=== PATIENT | male | born 1960 | race Caucasian/White ===

== ENCOUNTER 2016-09-29 21:30 | Emergency (ER) | payer OTHER ==
[~2016-09-29] VITALS: Ht 170.2 cm; Wt 136.1 kg
[~2016-09-29 21:30] MED LIST: ALBU25PO2 MC; ALBU8.5H6 IH; ASPI-482 PO; FLUT1DIS IH; FLUT1DIS3 IH; GABA-585 PO; HYDR-971 PO; LISI-334 PO; METO-269 PO; METO25TA9 PO; NYST15PO9 TP; RANI150C PO; SIMV10TA3 PO; SIMV20TA3 PO
[2016-09-29 21:45] VITALS: BP 167/90
[2016-09-29] MEDS ORDERED: HYDROcodone/APAP 5/325MG 1 TAB TABLET PO ONE (23:00)
[2016-09-29] MEDS ORDERED: DIPHTH,PERTUSS(ACELL),TET TOX 0.5 ML DISP.SYRIN. VAX IM ONE (23:00)
--- NOTE | 2016-09-29 23:00 | PHYS DOC ---
Past Medical History Past Medical History: Asthma, GERD, High Cholesterol, Hypertension, [place], MRSA, Other Additional Past Medical Histor: chronic back pain,groin wound Past Surgical History: Other Additional Past Surgical Histo: tooth extraction Alcohol Use: None Drug Use: None Adult General Chief Complaint Chief Complaint: FOOT INJURY PAIN HPI HPI Patient is a 55 year old male who presents with mid foot plantar pain to right foot after stepping on a nail. Had shoes on. Maximiliano nail. It came out immediately. Happened shortly prior to arrival. Denies numbness, tingling, weakness, bleeding. Unknown tetanus status. Review of Systems Review of Systems Constitutional: Denies fever or chills [] Eyes: Denies change in visual acuity, redness, or eye pain [] HENT: Denies nasal congestion or sore throat [] Respiratory: Denies cough or shortness of breath [] Cardiovascular: No additional information not addressed in HPI [] GI: Denies abdominal pain, nausea, vomiting, bloody stools or diarrhea [] : Denies dysuria or hematuria [] Musculoskeletal: Denies back pain [] Integument: Denies rash or skin lesions [] Neurologic: Denies headache, focal weakness or sensory changes [] Endocrine: Denies polyuria or polydipsia [] Current Medications Current Medications Current Medications Medications (Trade) Dose Ordered Sig/Keith Start Time Stop Time Status Last Admin Dose Admin Acetaminophen/ Hydrocodone Bitart (Lortab 5/325) 1 tab 1X ONCE 09/29/16 23:00 09/29/16 23:01 DC 09/29/16 22:50 1 TAB Diphtheria/ Tetanus/Acell Pertussis (Boostrix) 0.5 ml ONCE ONCE 09/29/16 23:00 09/29/16 23:01 DC 09/29/16 22:52 0.5 ML Allergies Allergies Allergies Coded Allergies Type Severity Reaction Last Updated Verified No Known Drug Allergies 08/15/14 No Physical Exam Physical Exam Constitutional: Well developed, well nourished, no acute distress, non-toxic appearance. [] HENT: Normocephalic, atraumatic, bilateral external ears normal, oropharynx moist, nose normal. [] Eyes: PERRLA, EOMI. [] Neck: Normal range of motion, supple. [] Cardiovascular:Heart rate regular rhythm [] Lungs & Thorax: Bilateral breath sounds clear to auscultation [] Abdomen: Bowel sounds normal, soft, no tenderness. [] Skin: Warm, dry, no erythema, no rash. [] Back: Normal range of motion. [] Extremities:RLE with small puncture wound to mid plantar foot with no surrounding discoloration; has local tenderness; Can flex/ex toes; Can dorsiflex /plantar flex ankle; No medial or lateral malleolar tenderness; No 5 th metatarsal base tenderness; SILT goodwin/sa/sp/dp/tib distributions; good dp and pt pulses Neurologic: Alert and oriented X 3, normal motor function, normal sensory function, no focal deficits noted. [] Psychologic: Affect normal, judgement normal, mood normal. [] Current Patient Data Vital Signs Vital Signs Date Time Temp Pulse Resp B/P (MAP) Pulse Ox O2 Delivery O2 Flow Rate FiO2 09/29/16 21:45 98.0 73 20 93 Room Air 98.0 Radiology/Procedures Radiology/Procedures Right foot x-rays interpreted by me as no acute fracture or dislocation, no foreign body Course & Med Decision Making Course & Med Decision Making Discussed supportive care. Return precautions given. He understands and agrees with plan. Dragon Disclaimer Dragon Disclaimer This electronic medical record was generated, in whole or in part, using a voice recognition dictation system. Departure Departure Impression: Primary Impression: Pain, foot Disposition: 01 HOME, SELF-CARE Condition: STABLE Referrals: NO PCP (PCP) Patient Instructions: Musculoskeletal Pain Additional Instructions: Your x-ray appears normal. Take Tylenol or ibuprofen as needed for pain. Follow- up with your primary care doctor. Return for any concerns. Problem Qualifiers Primary Impression: Pain, foot Laterality: right Qualified Codes: M79.671 - Pain in right foot Raymundo LARSON MD Sep 29, 2016 23:00
--- NOTE | 2016-09-30 09:14 | RAD ---
LEFT FOOT AP LATERAL Clinical Indication: mid foot pain to ball of foot after stepping on nail Comparison: None. Findings: There is no acute fracture or dislocation. The bony alignment is normal. Mineralization is normal. No bony erosion. Moderate plantar calcaneal enthesophyte. No radiopaque foreign body is identified. There is no soft tissue abnormality. IMPRESSION: 1. No acute fracture. 2. No radiopaque foreign body.
== END 2016-09-29 23:12 | disposition home or self-care (01) ==
LOC: ER 21:30
DX: M79.671 Pain in right foot (principal); E78.00 Pure hypercholesterolemia, unspecified; G89.29 Other chronic pain; I10 Essential (primary) hypertension; J45.909 Unspecified asthma, uncomplicated; K21.9 Gastro-esophageal reflux disease without esophagitis; I25.2 Old myocardial infarction; Z86.14 Personal history of Methicillin resistant Staphylococcus aureus infection; W22.8XXA Striking against or struck by other objects, initial encounter; Y93.89 Activity, other specified; Y99.8 Other external cause status; Y92.89 Other specified places as the place of occurrence of the external cause
CPT/HCPCS: 73620; 90471; 90715; 99284-25

== ENCOUNTER 2017-01-20 11:45 | Emergency (ER) | payer OTHER ==
[~2017-01-20] VITALS: Ht 170.2 cm; Wt 158.8 kg
[~2017-01-20 11:45] MED LIST changes: +METO-239 PO; -METO25TA9 PO
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
[2017-01-20] MEDS ORDERED: IBUPROFEN 600 MG TABLET. PO ONE (13:30)
[2017-01-20 14:02] LABS: BASO # 0.1 x10^3/uL (0.0-0.2); BASO % 1 % (0-3); EOS % 1 % (0-3); HEMATOCRIT 42.8 % (39.0-53.0); HEMOGLOBIN 14.3 g/dL (13.0-17.5); LYMPH # 2.9 x10^3/uL (1.0-4.8); LYMPH % 27 % (24-48); MEAN CORPUSCULAR HEMOGLOBIN 28 pg (25-35); MEAN CORPUSCULAR HGB CONC 33 g/dL (31-37); MEAN CORPUSCULAR VOLUME 84 fL (79-100); MONO % 5 % (0-9); NEUT % 66 % (31-73); PLATELET COUNT 256 x10^3/uL (140-400); RED BLOOD COUNT 5.07 x10^6/uL (4.30-5.70); WHITE BLOOD COUNT 10.8 x10^3/uL (4.0-11.0)
--- NOTE | 2017-01-20 14:29 | EKG ---
[facility] [address] [place] [address] Test Date: 2017-01-20 Test Time: 13:41:02 Pat Name: TRACI HUYNH Department: Room: Gender: M [employer] Architect: : 1960 Requested By: CRISTOFER VILLANUEVA Order Number: [id number] Reading MD: Pamela Nolasco Measurements Intervals [place] Rate: 58 P: 55 VA: 184 QRS: 28 QRSD: 104 T: 36 QT: 450 QTc: 446 Interpretive Statements SINUS RHYTHM NORMAL EKG Electronically Signed On 01-20-2017 19:40:36 CDT by Pamela Nolasco
[2017-01-20 14:42] LABS: CALCIUM 9.1 mg/dL (8.5-10.1); GFR 76.7
[2017-01-20 14:46] LABS: ALBUMIN 3.3 g/dL (3.4-5.0); ALBUMIN/GLOBULIN RATIO 0.9 (1.0-1.7); TOTAL BILIRUBIN 0.4 mg/dL (0.2-1.0); TOTAL PROTEIN 6.9 g/dL (6.4-8.2)
[2017-01-20] MEDS ORDERED: SULF1TAB24 PO (15:01)
[2017-01-20 15:10] VITALS: BP 196/95
== END 2017-01-20 15:21 | disposition home or self-care (01) ==
LOC: ER 11:45
DX: L03.211 Cellulitis of face (principal); I10 Essential (primary) hypertension; E11.9 Type 2 diabetes mellitus without complications; E78.00 Pure hypercholesterolemia, unspecified; G89.29 Other chronic pain; J45.909 Unspecified asthma, uncomplicated; I25.2 Old myocardial infarction; Z86.14 Personal history of Methicillin resistant Staphylococcus aureus infection; K21.9 Gastro-esophageal reflux disease without esophagitis
CPT/HCPCS: 36415; 70486; 80053; 84484; 85025; 93005; 99285-25

== ENCOUNTER 2017-05-04 20:33 | Emergency (ER) | payer OTHER ==
[2017-05-04 21:15] LABS: ADD MAN DIFF? NO
[2017-05-04 21:16] LABS: BASO # 0.1 x10^3/uL (0.0-0.2); BASO % 1 % (0-3); EOS # 0.2 x10^3/uL (0.0-0.7); EOS % 1 % (0-3); HEMATOCRIT 44.2 % (39.0-53.0); HEMOGLOBIN 14.5 g/dL (13.0-17.5); LYMPH # 2.5 x10^3/uL (1.0-4.8); LYMPH % 19 % (24-48); MEAN CORPUSCULAR HEMOGLOBIN 28 pg (25-35); MEAN CORPUSCULAR HGB CONC 33 g/dL (31-37); MEAN CORPUSCULAR VOLUME 85 fL (79-100); MONO # 1.1 x10^3/uL (0.0-1.1); MONO % 8 % (0-9); NEUT # 9.5 x10^3uL (1.8-7.7); NEUT % 71 % (31-73); PLATELET COUNT 248 x10^3/uL (140-400); RED CELL DISTRIBUTION WIDTH 13.8 % (11.5-14.5); WHITE BLOOD COUNT 13.4 x10^3/uL (4.0-11.0)
[2017-05-04 21:34] LABS: ANION GAP 7 (6-14); BLOOD UREA NITROGEN 11 mg/dL (8-26); BUN/CREATININE RATIO 11 (6-20); CARBON DIOXIDE 29 mmol/L (21-32); CHLORIDE 100 mmol/L (98-107); GFR 76.7; GLUCOSE 99 mg/dL (70-99); POTASSIUM 3.6 mmol/L (3.5-5.1); SODIUM 136 mmol/L (136-145)
[2017-05-04 21:40] LABS: ALBUMIN 3.6 g/dL (3.4-5.0); ALBUMIN/GLOBULIN RATIO 0.9 (1.0-1.7); ALK PHOS 101 U/L (46-116); ALT (SGPT) 26 U/L (16-63); AST (SGOT) 17 U/L (15-37); TOTAL BILIRUBIN 0.5 mg/dL (0.2-1.0); TOTAL PROTEIN 7.7 g/dL (6.4-8.2)
[2017-05-04 21:43] LABS: TROPONINI < 0.017 ng/mL (0.000-0.055)
[2017-05-04 21:51] LABS: D-DIMER 0.43 ug/mlFEU (0.00-0.50)
[2017-05-04 22:01] LABS: INFLUENZA A PATIENT NEGATIVE (NEGATIVE); INFLUENZA B PATIENT NEGATIVE (NEGATIVE); OBC FLU VALID
== END 2017-05-04 22:55 | disposition home or self-care (01) ==
LOC: ER 20:33
DX: R07.89 Other chest pain (principal); R05 Cough; E78.00 Pure hypercholesterolemia, unspecified; I10 Essential (primary) hypertension; G89.29 Other chronic pain; J45.909 Unspecified asthma, uncomplicated; K21.9 Gastro-esophageal reflux disease without esophagitis; Z87.891 Personal history of nicotine dependence; I25.2 Old myocardial infarction; Z86.14 Personal history of Methicillin resistant Staphylococcus aureus infection
CPT/HCPCS: 36415; 71045; 80053; 84484; 85025; 85379; 87804; 87804-59; 93005; 99285-25

== ENCOUNTER 2017-10-27 22:07 | Emergency (ER) | payer OTHER | END 2017-10-27 23:17 | disposition home or self-care (01) | LOC: ER 23:17 | DX: S40.022A Contusion of left upper arm, initial encounter (principal); K21.9 Gastro-esophageal reflux disease without esophagitis; J45.909 Unspecified asthma, uncomplicated; I10 Essential (primary) hypertension; I25.2 Old myocardial infarction; W01.0XXA Fall on same level from slipping, tripping and stumbling without subsequent striking against object, initial encounter; Y93.89 Activity, other specified; Y99.8 Other external cause status; Y92.89 Other specified places as the place of occurrence of the external cause | CPT/HCPCS: 99282 ==

== ENCOUNTER 2018-04-20 21:00 | Emergency (ER) | payer OTHER ==
[~2018-04-20] VITALS: Ht 170.2 cm; Wt 127.0 kg
[~2018-04-20 21:00] MED LIST changes: +HYDR-3164 PO; -HYDR-971 PO; +IBUP-1007 PO; +SULF1TAB24 PO
[2018-04-20 21:15] VITALS: BP 173/80
--- NOTE | 2018-04-20 21:38 | RAD ---
Examination: 3 views of the left hand HISTORY: History of pain in the thumb, no known injury COMPARISON: None available FINDINGS: The alignment and the metacarpophalangeal, interphalangeal joints grossly appears unremarkable. There is no acute fracture or dislocation identified. Mild degenerative changes identified in the first carpometacarpal joint, metacarpophalangeal joint. There is a faint 2 mm hyperdensity identified in the soft tissue of the between the first and second digits could be soft tissue calcification or foreign body. IMPRESSION: 1. No acute osseous findings. 2. Tiny 2 mm hyperdensity identified in the soft tissue of the between the first and second digits could be soft tissue calcification or foreign body. Electronically signed by: Darrian Perla MD (04/20/2018 9:33 PM) [facility]
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
== END 2018-04-20 22:06 | disposition home or self-care (01) ==
LOC: ER 21:00
DX: M79.642 Pain in left hand (principal); J45.909 Unspecified asthma, uncomplicated; K21.9 Gastro-esophageal reflux disease without esophagitis; E78.00 Pure hypercholesterolemia, unspecified; I10 Essential (primary) hypertension; I25.2 Old myocardial infarction; G89.29 Other chronic pain; M54.9 Dorsalgia, unspecified
CPT/HCPCS: 29125; 73130; 99283

== ENCOUNTER 2018-06-02 20:13 | Emergency (ER) | payer OTHER ==
[~2018-06-02] VITALS: Ht 170.2 cm; Wt 127.0 kg
[2018-06-02 20:55] VITALS: BP 162/95
[2018-06-02] MEDS ORDERED: OLOP5DRO EACHEYE (21:04)
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
== END 2018-06-02 21:15 | disposition home or self-care (01) ==
LOC: ER 20:13
DX: H04.203 Unspecified epiphora, bilateral (principal); E78.00 Pure hypercholesterolemia, unspecified; J45.909 Unspecified asthma, uncomplicated; K21.9 Gastro-esophageal reflux disease without esophagitis; I10 Essential (primary) hypertension; I25.2 Old myocardial infarction; G89.29 Other chronic pain
CPT/HCPCS: 99283